=== PATIENT | male | born 1995 | race African-American/Black ===

== ENCOUNTER 2024-06-24 12:37 | Emergency (ER) | payer OTHER ==
[~2024-06-24] VITALS: Ht 167.6 cm; Wt 86.2 kg
[2024-06-24 12:56] VITALS: BP 124/70; PULSE 53; RESP 16; TEMP 97.3; O2SAT 97
[2024-06-24] MEDS ORDERED: FAMO-90 PO (14:58)
== END 2024-06-24 15:04 | disposition home or self-care (01) ==
LOC: MED 12:37
DX: K30 Functional dyspepsia (principal); R07.89 Other chest pain; Z79.899 Other long term (current) drug therapy
CPT/HCPCS: 93005; 99283